=== PATIENT | female | born 1995 | race Caucasian/White ===

== ENCOUNTER → 2019-09-07 16:03 | Outpatient (CLI) | payer BC, SELFPAY ==
[2019-09-07 17:44] LABS: ALB/GLOB Ratio 0.7 RATIO (0.9-2.4); AST(SGOT) 17 U/L (15-37); Alanine Aminotransfer ALT/SGPT 24 U/L (13-56); Albumin, Serum 3.4 g/dL (3.2-5.0); Alkaline Phosphatase 58 U/L (45-117); Anion Gap 7 (5-15); BUN 12 mg/dL (7-18); BUN/Creat Ratio 14.6 RATIO (10-20); Calcium,Total 8.9 mg/dL (8.5-10.1); Chloride 104 mmol/L (98-107); Creatinine, Serum 0.82 mg/dL (0.55-1.02); EST Glomerular Filtration Rate 91 mL/min (>60); Est Glom Filt Rate - Afr Amer 110 mL/min (>60); Globulin 4.9 g/dL (2.2-4.2); Glucose 78 mg/dL (74-106); Potassium 3.8 mmol/L (3.5-5.1); Protein, Total 8.3 g/dL (6.4-8.2); Sodium Level 137 mmol/L (136-145)
== END ==
PROVIDERS: Family Provider Student in an Organized Health Care Education/Training Program; PCP Student in an Organized Health Care Education/Training Program; Referring Provider Nurse Practitioner Family; Visit Provider Nurse Practitioner Family
DX: L70.0 Acne vulgaris (principal)
CPT/HCPCS: 36415; 80053

== ENCOUNTER 2022-11-14 23:05 | Emergency (ER) | payer OTHER, SELFPAY ==
[2022-11-14 23:06] VITALS: BP 109/82; PULSE 92; RESP 15; TEMP 37; O2SAT 97; BMI 32.1
[2022-11-14 23:53] LABS: Absolute Lymphocyte Count 1.22 X10^3/uL (0.83-4.51); Absolute Neutrophil Count 3.8 X10^3/uL (2.0-7.7); Basophil# 0.01 X10^3/uL; Basophil% 0.2 % (0-1); Eosinophil# 0.01 X10^3/uL; Eosinophils% 0.2 % (0-5); Hematocrit 43.4 % (37-47); Hemoglobin 14.1 g/dL (12.0-15.0); Lymphocyte # 1.22 X10^3/ul (0.83-4.51); Mean Corp Hgb Conc 32.5 g/dL (32-36); Mean Corpuscular Hgb 31.3 pg (27.0-32.0); Mean Corpuscular Volume 96.4 fL (81-99); Mean Platelet Vol. 8.9 fl (6.2-12.0); Monocyte# 0.48 X10^3/uL; Monocyte% 8.7 % (0-10); NRBC Flagged by Analyzer 0 % (0-5); Neutrophil # 3.81 X10^3/uL (2.7-7.7); Neutrophil % 68.7 % (47-70); Platelet Count 400 K/mm3 (150-450); RBC Distribution Width CV 12.9 % (11.6-14.6); RBC Distribution Width SD 45.6 fl (35.1-43.9); White Blood Count 5.5 K/mm3 (4.4-11.0)
--- NOTE | 2022-11-14 23:56 | EX.ED.DYSGE1 ---
HPI History of Present Illness Chief Complaint: General Illness Informant: patient Narrative Narrative: Patient appears as when nausea vomiting diarrhea and abdominal cramping after eating an undercooked hamburger. This started within just 2 to 3 hours after eating a burger. She felt perfectly fine before this. Her first symptoms were cramping. She developed nausea. She then had several episodes of watery diarrhea and about 4 episodes of vomiting. She has not vomited since but she is very nauseated. It is hard for her to drink fluids without causing cramping and diarrhea. No blood is ever been seen. No fevers or chills. Most of her cramping is epigastric. She denies urinary symptoms. Last menstrual period was about 3 and half weeks ago and she is due to start soon. She has no discharge. She has no history of abdominal surgeries. No fever at any time. PFSH PFSH Home Medications dicyclomine 20 mg tablet 20 mg PO TID #10 tabs 11/15/22 [Rx Last Taken Unknown] ondansetron 4 mg disintegrating tablet 4 mg PO Q8H PRN PRN Nausea #10 tabs 11/15/22 [Rx Last Taken Unknown] promethazine 25 mg tablet 25 mg PO Q6H PRN PRN Nausea #10 TABLETS 11/15/22 [Rx Last Taken Unknown] Allergy/AdvReac Type Severity Reaction Status Date / Time sulfamethoxazole AdvReac Nausea Verified 11/14/22 23:10 [From Bactrim] trimethoprim [From Bactrim] AdvReac Nausea Verified 11/14/22 23:10 Social History Smoking Status: Never smoker ROS ROS ED Constitutional Constitutional ED: Denies chills, fever(s) or subjective Eyes Eyes: Denies change in vision ENT ENT ED: Denies rhinorrhea or sore throat Cardiovascular Cardiovascular: Denies chest pain or palpitations Respiratory/Chest Respiratory/Chest: Denies cough or dyspnea Gastrointestinal Gastrointestinal: Reports abdominal pain, diarrhea, nausea and vomiting; Denies constipation or melena Genitourinary Genitourinary ED: Reports other Details: No dysuria. Mild decrease in volume. ; Denies urinary frequency Musculoskeletal Musculoskeletal: Denies myalgias Integumentary Denies rash Neurologic Neurologic: Denies headache(s) Psychiatric Psychiatric: Denies anxiety Endocrine Endocrinology: Denies polydipsia or polyuria Hematologic/Lymphatic Hematologic/Lymphatic: Reports anemia Allergic/Immunologic Allergic/Immunologic ED: Denies urticaria EXAM Physical Exam Narrative Exam Narrative: Patient awake alert nontoxic in appearance. Carries on normal conversation. HEENT: No pallor. No jaundice noted. Mucous membranes are mildly dry. Neck supple with no JVD. Lungs are clear bilaterally. Heart is regular with a rate about 90. No murmur gallop or rub. Peripheral pulses equal. Abdomen is positive normal bowel sounds. These are not hyper or hypo or reactive. She has no tenderness on exam. She states she gets intermittent cramping. No CVA tenderness. No suprapubic tenderness Extremities show no edema or rashes. Peripheral pulses are normal x4. Patient is alert oriented and appropriate. Skin shows no jaundice or pallor. She is not diaphoretic. Const Vital Signs: 11/14/22 23:06 11/15/22 00:41 Temperature 98.6 F Temperature Source Temporal Pulse Rate 92 78 Respiratory Rate 15 15 Blood Pressure 109/82 H 105/77 Blood Pressure Mean 91 86 Pulse Ox 97 100 Oxygen Delivery Method Room Air Room Air HEENT Reports dry mucous membranes Mouth ED: Yes dry mucous membranes Mouth: dry mucous membranes MDM MDM MDM Narrative Medical decision making narrative: Been upPatient was given some Bentyl for her cramping. She is urinated. Her nausea is better but still present. She states when she stood up quickly after going to the bathroom she felt just a little lightheaded but no palpitations or chest pain. She states that made the nausea transiently worse. Overall she is having less cramping and less nausea. I did repeat abdominal exam that still shows no area of tenderness whatsoever. I do not think a CT scan of the abdomen is justified at this time. She has nausea vomiting diarrhea. She does not have fever. She does not have any tenderness. Her bowel sounds are normal. There is no distention. Her blood work is not showing any acute process. I think this is likely either a reaction to undercooked hamburger, or may be a viral illness. Either of these should resolve and improve. Although her nausea waxes and wanes, she has had no vomiting here. CBC shows normal white count hemoglobin and platelets. Electrolytes are normal. Glucose is normal at 97. She has no significant dehydration on labs with a normal BUN to creatinine ratio. is negative. Liver function test show no marked abnormalities. Urine was clear with ketones. There were 5-10 white cells but also as many epithelial cells. She has no symptoms of UTI. I will send this for culture but I do not think this requires prescription antibiotic therapy. I will write for meds for cramping (Bentyl), as well as meds for nausea. I will write for both Phenergan and Zofran to give her options. We discussed returning if she has fevers chills consistent pain localization of pain or other concerns. She did request a day off work which is certainly appropriate considering her symptoms. Lab Data Labs: Laboratory Results - last 24 hr 11/14/22 11/14/22 11/14/22 23:15 23:15 23:15 WBC 5.5 RBC 4.50 Hgb 14.1 Hct 43.4 MCV 96.4 MCH 31.3 MCHC 32.5 RDW Std Deviation 45.6 H RDW Coeff of Stanley 12.9 Plt Count 400 MPV 8.9 Immature Gran % (Auto) 0.200 Neut % (Auto) 68.7 Lymph % (Auto) 22.0 [place] % (Auto) 8.7 Eos % (Auto) 0.2 Baso % (Auto) 0.2 Absolute Neuts (auto) 3.8 Absolute Lymphs (auto) 1.22 Nucleated RBC % 0 Sodium 136 Potassium 3.6 Chloride 103 Carbon Dioxide 25.0 Anion Gap 8 BUN 8 Creatinine 0.93 Estim Creat Clear Calc 79.16 Est GFR (MDRD) Af Amer 94 Est GFR (MDRD) Non-Af 78 BUN/Creatinine Ratio 8.6 L Glucose 97 Calcium 9.5 Total Bilirubin Direct Bilirubin AST ALT Alkaline Phosphatase Total Protein Albumin Globulin Lipase Serum , Qual NEGATIVE Urine Color Urine Clarity Urine pH Ur Specific [place] Urine Protein Urine Glucose (UA) Urine Ketones Urine Occult Blood Urine Nitrite Urine Bilirubin Urine Urobilinogen Ur Leukocyte Esterase Urine RBC Urine WBC Ur Squamous Epith Cells Urine Bacteria Urine Mucus 11/14/22 11/14/22 23:15 23:15 WBC RBC Hgb Hct MCV MCH MCHC RDW Std Deviation RDW Coeff of [place] Plt Count MPV Immature Gran % (Auto) Neut % (Auto) Lymph % (Auto) [place] % (Auto) Eos % (Auto) Baso % (Auto) Absolute Neuts (auto) Absolute Lymphs (auto) Nucleated RBC % Sodium Potassium Chloride Carbon Dioxide Anion Gap BUN Creatinine Estim Creat Clear Calc Est GFR (MDRD) Af Amer Est GFR (MDRD) Non-Af BUN/Creatinine Ratio Glucose Calcium Total Bilirubin 0.50 Direct Bilirubin 0.14 AST 24 ALT 22 Alkaline Phosphatase 55 Total Protein 8.6 H Albumin 3.4 Globulin 5.2 H Lipase 69 L Serum , Qual Urine Color Yellow Urine Clarity Clear Urine pH 6.0 Ur Specific [place] 1.025 Urine Protein 30 H Urine Glucose (UA) Normal Urine Ketones 150 A* Urine Occult Blood 10 H Urine Nitrite Negative Urine Bilirubin 1 H Urine Urobilinogen 1 H Ur Leukocyte Esterase 25 H Urine RBC 0-5 SEEN Urine WBC 5-10 SEEN Ur Squamous Epith Cells 5-10 SEEN Urine Bacteria 2+ Urine Mucus 2+ Discharge Plan Triage Chief Complaint: General Illness ED Provider: Scott Cabral Dx/Rx/DC Orders Clinical Impression: Nausea vomiting and diarrhea, History of food poisoning Instructions: ED Vomiting and Diarrhea ... Prescriptions: New dicyclomine 20 mg tablet 20 mg PO TID Qty: 10 0RF promethazine [promethazine] 25 mg tablet 25 mg PO Q6H PRN PRN (Reason: Nausea) Qty: 10 0RF ondansetron [ondansetron] 4 mg tablet,disintegrating 4 mg PO Q8H PRN PRN (Reason: Nausea) Qty: 10 0RF Stand Alone Forms: ED Work / School Excuse Primary Care Provider: Avtar Madsen Referrals: Avtar Madsen, [Primary Care Provider] - 1-2 Days if not improving Disposition Disposition: Home, Self Care
[2022-11-15 00:01] LABS: Internal QC Validated? YES +Cl - CLEAR BKGD; Pregnancy, Serum, hCG Quali. NEGATIVE Negative
[2022-11-15] MEDS: Ondansetron 4 MG/2 ML Vial IV (00:02)
[2022-11-15] MEDS: 0.9% Normal Saline 1,000 ML 1000 ML IV (00:02)
[2022-11-15 00:04] LABS: Anion Gap 8 (5-15); BUN 8 mg/dL (7-18); BUN/Creat Ratio 8.6 RATIO (10-20); Calcium,Total 9.5 mg/dL (8.5-10.1); Chloride 103 mmol/L (98-107); Creatinine, Serum 0.93 mg/dL (0.55-1.02); EST Glomerular Filtration Rate 78 mL/min (>60); Est Glom Filt Rate - Afr Amer 94 mL/min (>60); Estimated Creatinine Clearance 79.16 ml/min; Glucose 97 mg/dL (74-106); Potassium 3.6 mmol/L (3.5-5.1); Sodium Level 136 mmol/L (136-145)
[2022-11-15 00:05] LABS: Color, Urine Yellow (Yellow); Glucose, Dipstick Normal (Normal); Leukocyte Esterase-Dipstick 25 /ul (Negative); Nitrite-Dipstick Negative (Negative); Occult Blood-Urine 10 /ul (Negative); Protein-Dipstick 30 mg/dl (Negative); Specific Gravity, Urine 1.025 (1.002-1.030); Urine Clarity Clear (Clear); Urine Urobilinogen 1 mg/dl (Normal)
[2022-11-15 00:12] LABS: Ketone-Dipstick 150 mg/dl (Negative); Urine Bilirubin Dipstick 1 mg/dL (Negative)
[2022-11-15 00:16] LABS: AST(SGOT) 24 U/L (15-37); Alanine Aminotransfer ALT/SGPT 22 U/L (13-56); Albumin, Serum 3.4 g/dL (3.2-5.0); Alkaline Phosphatase 55 U/L (45-117); Bilirubin, Direct 0.14 mg/dL (0.00-0.30); Globulin 5.2 g/dL (2.2-4.2); Lipase 69 U/L (73-393); Protein, Total 8.6 g/dL (6.4-8.2)
[2022-11-15] MEDS: Dicyclomine 10 MG Capsule 20 MG PO (00:26)
[2022-11-15 00:31] LABS: Bacteria 2+ /hpf (None Seen); Mucous, Urine 2+ /hpf (<or=2+); Red Blood Cells-Urine 0-5 SEEN /hpf (0-5); Squamous Epithelial Cells - UA 5-10 SEEN /hpf (5-10); White Blood Cells 5-10 SEEN /hpf (0-5)
[2022-11-15 00:41] VITALS: BP 105/77; PULSE 78; RESP 15; O2SAT 100
[2022-11-15 02:15] VITALS: RESP 17; O2SAT 98
[2022-11-15] MEDS: proMETHazine 25 MG/ML Syringe 12.5 MG IM (02:30)
== END 2022-11-15 02:31 | disposition home or self-care (01) ==
PROVIDERS: Emergency Provider Emergency Medicine; PCP Student in an Organized Health Care Education/Training Program; Visit Provider Emergency Medicine
DX: R11.2 Nausea with vomiting, unspecified (principal); R19.7 Diarrhea, unspecified; R10.13 Epigastric pain
CPT/HCPCS: 80048; 80076; 81001; 83690; 84703; 85025; 87086; 87088; 96372; 96374; 99284; J7030; A4216; J2405

== ENCOUNTER 2025-02-22 09:30 | Outpatient (RCR) | payer OTHER, SELFPAY ==
--- NOTE | 2025-01-25 12:04 | HP.OTEVAL_ITS ---
Patient's Visit Information Visit Information Visit Information: NOHEMI BLOUNT is a 29 year old F, referred to Occupational Therapy by Dr. Avtar Madsen DO, with a diagnosis of right thumb pain / Right wrist pain. Date of Evaluation: 01/25/25 Occupational Therapist: AMERICA Leung/Lisandro, CHT Subjective Subjective: This 29 year old female was seen for OT eval with dx of right thumb pain and right wrist pain. Pt states this has been a problem for about 5 months. pt states she does monthly massages that helps with her wrist pain. But right thumb feels like it pops out of place and this pain does not go away. 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 pt states she also struggles with CTS with using brace. 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 pt states she has tried her best to change her position at work but still has pain. pt would like to know what she can do to decrease her pain. Pain right thumb: Current Pain Intensity: 2 Pain Intensity Range: 4 and 5 ROM Wrist: right75/70 left 70/65 CMC: right0 left 5 MP: right 40 left 40 IP: right 60 left 50* Palmar Abduction: right 45 left 50 ROM Comments: Right RD [address]* UD 35* Strength Roof [employer]: right 60# left 55# Lateral Pinch: right 10# left 10# Tripod Pinch: right 14# left 14# Strength Comments: pt demo with bilateral resistive testing Sensation Sensation Comments: denies Quick DASH-Disab of Arm,Shoulder& Hand Quick DASH Score: 35.0000 Goals Goal:: pt will demo increase thumb stability with no noted MP hyper ext- with resistive testing by d/c Goal:: pt will report no pain greater than 1/10 with use of right UE with ADLs by d.c Goal:: Pt will demo understanding of joint protection and ergonomics when performing BADLs and IADLs by d/c Pt will demo understanding of adaptive Equipment use to decrease stress on joints to allow pt to perform BADSL and IADLS at ELISEO level. Goal:: Pt will demo understanding of using supportive bracing 80% of workday/ADLS to decrease stress on tendon origin to allow healing and decrease pain by end of 2nd session. Rehabilitation General Assessment: pt demo with positive pain of right thumb and wrist decreasi ng her IND with ADLs and work tasks. pt would benefit from skilled OT services 1-2x week for 4 weeks to decrease pts pain, ed. pt on wrist/ hand ergonomics. pt demo understanding and agree to POC. Rehabilitation Potential: Good Anticipated Interventions Anticipated Interventions: A/AAROM/PROM, Strengthening, Triggerpoint Release, Modalities, Orthoses, Joint Protection/Energy Conservation, Ergonomic Education, Fine Motor Coord/Shorty, Education re assistive Equipment and Home Program Visit Plan Frequency: 1-2x /Week Duration: 4 Weeks TEXT: Thank you for the opportunity to evaluate your patient. For Medicare and Medicare HMO plans, please review the plan of care and approve it. It will need to be FAXED BACK to us at [phone] for Medicare purposes. Please let me know if there are questions or concerns regarding this plan of care. Physician Signature: Date:
--- NOTE | 2025-02-22 10:40 | HP.OTREVAL ---
Re-Evaluation Intro: Dr. Avtar Madsen, DO, It has been my pleasure to treat NOHEMI BLOUNT over the last 3 visits for right thumb pain / Right wrist pain. Please see the progress note below for an update on the occupational therapy plan of care! Subjective Subjective: pt arrives to session- states she had a increase pain for 24+ hours following pain. pt states she cannot use a brace at work but will use when home and at night. pt cannot work with tape as her hand does sweat and this makes the tape not stick. pt has made ergonomic adj as much as she can with work tasks and daily tasks. Plan Plan Frequency: 1-2x /Week Duration: 4 Weeks Visits in this POC: 4 weeks (1-2x week) Plan: pt symptoms of pain have not changed despite pts conservative treatment. After discussion with pt on working and the inability to use a brace to protect 1st dorsal compartment, would rec.d pt for possible referral to ortho for possible injection. pt agree and will message for referral as well. Goals Goals Patient Goals: Decrease Pain, Use Hand/Wrist/Arm Normally Again, Decrease Tingling/Numbness and Be More Independent in ADLS Goal:: pt will demo increase thumb stability with no noted MP hyper ext- with resistive testing by d/c Goal:: pt will report no pain greater than 1/10 with use of right UE with ADLs by d.c Goal:: Pt will demo understanding of joint protection and ergonomics when performing BADLs and IADLs by d/c Pt will demo understanding of adaptive Equipment use to decrease stress on joints to allow pt to perform BADSL and IADLS at ELISEO level. Goal:: Pt will demo understanding of using supportive bracing 80% of workday/ADLS to decrease stress on tendon origin to allow healing and decrease pain by end of 2nd session. Anticipated Interventions Anticipated Interventions Anticipated Interventions: A/AAROM/PROM, Strengthening, Triggerpoint Release, Modalities, Orthoses, Joint Protection/Energy Conservation, Ergonomic Education, Fine Motor Coord/Shorty, Education re assistive Equipment and Home Program Re-Evaluation Ending Re-evaluation ending: Please do not hesitate to contact me at [phone] by phone or if you have questions or concerns regarding this new plan of care! Sincerely, Cindi Faustin, OTR/L, CHT
--- NOTE | 2025-06-20 09:12 | HP.OT.NRP ---
Patient Information Patient Information: NOHEMI BLOUNT was seen in my office for initial evaluation on 01/25/25. The following Plan of Care was established for this patient: POC Established Initial Frequency: 1-2x /Week Initial Duration: 4 Weeks Plan: pt symptoms of pain have not changed despite pts conservative treatment. After discussion with pt on working and the inability to use a brace to protect 1st dorsal compartment, would rec.d pt for possible referral to ortho for possible injection. pt agree and will message for referral as well. Anticipated Interventions Anticipated Interventions: A/AAROM/PROM, Strengthening, Triggerpoint Release, Modalities, Orthoses, Joint Protection/Energy Conservation, Ergonomic Education, Fine Motor Coord/Shorty, Education re assistive Equipment and Home Program Last Seen Last Seen: This patient was last seen in our office 02/22/25. Pertinent comments regarding their Occupational therapy will appear below: No further apts have been scheduled and due to time lapse in services pt is d/c. At this point I will be discontinuing this patient from occupational therapy. I would be happy to see this patient again in the future if found appropriate by the physician. Thank you! Cindi Faustin, OTR/L, CHT
== END 2025-02-22 19:00 | disposition home or self-care (01) ==
LOC: OT 09:30
PROVIDERS: PCP Student in an Organized Health Care Education/Training Program; Referring Provider Student in an Organized Health Care Education/Training Program; Visit Provider Student in an Organized Health Care Education/Training Program
DX: M79.644 Pain in right finger(s) (principal); M25.531 Pain in right wrist; Z00.00 Encounter for general adult medical examination without abnormal findings
CPT/HCPCS: 97035; 97140; 97166; 97530